=== PATIENT | female | born 1985 | race Caucasian/White ===

== ENCOUNTER → 2016-06-19 | Outpatient (CLI) | payer OTHER ==
[~2016-06-19] MED LIST: IBU-6600 MG PO; LANTUS100 U/ML SC; PERCOCET 325 MG1 TA2 PO; PRENATAL VITAMI1 TA5 PO; PRENATAL1 TA1 PO
== END ==
LOC: COL.RAD 14:45
DX: R22.1 Localized swelling, mass and lump, neck (principal)
CPT/HCPCS: A9585